=== PATIENT | male | born 1955 | race Caucasian/White ===

== ENCOUNTER → 2020-08-22 | Outpatient (CLI) | payer BC, OTHER ==
[~2020-08-22] MED LIST: ATORVASTATIN CA80 MG PO; CLOPIDOGREL75 MG PO; FISH OIL 1,0001 EAC9 PO; LEXAPRO 10 MG T10 M2 PO; MULTI VITAMIN1 EACH PO; NEXIUM 40 MG CA40 M1 PO; TESTOSTERO200 MG/1 M IM
== END ==
LOC: LAB 08-19 09:42
PROVIDERS: ATTEND Orthopaedic Surgery Foot and Ankle Surgery
DX: Z01.812 Encounter for preprocedural laboratory examination (principal); Z20.822 Contact with and (suspected) exposure to COVID-19

== ENCOUNTER → 2020-08-24 | Day surgery (SDC) | payer BC, OTHER ==
[~2020-08-24] VITALS: Ht 177.8 cm; Wt 87.5 kg
[~2020-08-24] MED LIST changes: +ECOTRIN325 MG PO; +PERCOCET 7.5-31 EAC1 PO
[2020-08-24 09:30] VITALS: BP 125/73
--- NOTE | 2020-08-30 13:20 | O ---
[facility] [place] [address] OPERATIVE REPORT Name: OBIE MELVIN Room #: REG [facility]..#: [id number] Admission: 08/24/20 Attend Phys: Renard Beyer MD Discharge: Date of : 59 Report #: [id number] THIS REPORT FOR: cc: Renard Benítez MD,Renard Beyer,Renard Tyler MD ~ DATE OF SERVICE: 08/24/2020 PREOPERATIVE DIAGNOSIS: Left midfoot arthritis. POSTOPERATIVE DIAGNOSIS: Left midfoot arthritis. PROCEDURE: Left midfoot arthrodesis, i.e., the second TMT and intercuneiform medial to middle joints. SURGEON: Dr. Renard Beyer. WEIGHER AND MIXER: Chanelle Alvarenga. ANESTHESIA: General. ESTIMATED BLOOD LOSS: Minimal. DRAINS: No drains. TOURNIQUET TIME: One hour. DESCRIPTION OF PROCEDURE: The patient was brought to the operating room, where he was placed under general anesthesia. Once under adequate general anesthesia, his left lower extremity was prepped and draped in sterile manner. The extremity was elevated, exsanguinated, tourniquet placed 300 mmHg. A dorsal incision over the patient's previous scar was made. Approximately 4 cm in length was dissected down through soft tissue to the dorsum of the foot and the medial to middle intercuneiform joint as well as Lisfranc joint and the second TMT joint. Each of these joints was then prepared utilizing rongeurs, osteotomes and curettes to good bleeding subchondral bone. The joints were fenestrated as well with drills. Demineralized bone matrix allograft was then placed into the joints and fixation across the joints was achieved with first a screw from the medial cuneiform to the base of second metatarsal through a small stab incision. Through the same incision, a medial to middle cuneiform screw was also placed. These were 4.0 cannulated screws, placed under fluoroscopic guidance. Crossing screws across the tarsometatarsal joint were then placed as well. Excellent fixation and alignment was achieved as verified under fluoroscopy. Once complete, the wounds were irrigated copiously and closed with 2-0 Vicryl in subcutaneous tissues and david were used for the skin. The [address] [address] OPERATIVE REPORT Name: OBIE MELVIN Room #: REG [facility].#: [id number] Admission: 08/24/20 Attend Phys: Renard Beyer MD Discharge: Date of : 59 Report #: [id number] wounds were dressed with Xeroform, 4 x 4s, and sterile soft compressive dressing was placed. Tourniquet was let down in approximately one hour. Toes were pink and warm with good capillary refill. There were no complications from the procedure. The patient tolerated the procedure well and was taken to recovery room without incident. <ELECTRONICALLY SIGNED> By: Renard Beyer MD 08/30/20 1320 1108 [id number] Renard Beyer MD /alana
== END | disposition home or self-care (01) ==
LOC: OR
PROVIDERS: ATTEND Orthopaedic Surgery Foot and Ankle Surgery
DX: M19.072 Primary osteoarthritis, left ankle and foot (principal); M25.572 Pain in left ankle and joints of left foot; E11.9 Type 2 diabetes mellitus without complications; I25.2 Old myocardial infarction; E78.00 Pure hypercholesterolemia, unspecified; K21.9 Gastro-esophageal reflux disease without esophagitis; G47.30 Sleep apnea, unspecified; J45.909 Unspecified asthma, uncomplicated; F41.9 Anxiety disorder, unspecified; F32.9 Major depressive disorder, single episode, unspecified; M10.9 Gout, unspecified; Z98.890 Other specified postprocedural states; Z79.899 Other long term (current) drug therapy; Z95.5 Presence of coronary angioplasty implant and graft; Z20.822 Contact with and (suspected) exposure to COVID-19
CPT/HCPCS: 50010; 50101; 50386; 50951; 51008; 51122; 51412; 52120; 53341; 56524; 57091; 57180; 62110; 62900; 70005